=== PATIENT | male | born 1970 | race Caucasian/White ===

== ENCOUNTER → 2018-03-14 16:51 | Outpatient (CLI) | payer OTHER, SELFPAY ==
[2018-03-14 17:17] LABS: Basophils # 0.1 K/mm3 (0-0.2); Basophils % 0.8 % (0.1-2.0); Eosinophils # 0.2 K/mm3 (0.0-0.4); Eosinophils % 2.2 % (0.1-12.0); Hematocrit 41.3 % (42.0-52.0); Hemoglobin 13.8 g/dL (14.1-18.0); Lymphocytes % 25.9 K/mm3 (10-50); Mean Corpuscular HGB Conc 33.5 g/dL (31.8-35.4); Mean Corpuscular Hemoglobin 31.8 pg (27.0-31.2); Mean Corpuscular Volume 94.9 fl (80-94); Mean Platelet Volume 8.2 fl (7.4-10.4); Monocytes # 0.6 K/mm3 (0.1-1.0); Neutrophils % 63.2 % (37.0-80.0); Platelet Count 271 K/mm3 (142-424); Red Blood Count 4.35 M/mm3 (4.60-6.20); Red Cell Distribution Width 13.2 % (11.5-17.5); White Blood Count 7.9 K/mm3 (4.8-10.8)
[2018-03-14 19:02] LABS: Erythrocyte Sedimentation Rate 20 mm/hr (0-15)
[2018-03-14 19:42] LABS: Alanine Aminotransferase 41 U/L (12-78); Albumin/Globulin Ratio 1.3 (1.1-1.8); Alkaline Phosphatase 91 U/L (46-116); Anion Gap 13.7 mEq/L (5-15); Aspartate Amino Transferase 20 U/L (15-37); Bilirubin,Total 0.3 mg/dL (0.2-1.0); Blood Urea Nitrogen 24 mg/dL (7-18); Carbon Dioxide 29 mmol/L (21.0-32.0); Chloride 103 mmol/L (98-107); Chol/HDL Ratio 7.7 (1-3.5); Cholesterol 223 mg/dL (140-200); Creatinine,Serum 1.34 mg/dL (0.70-1.30); Estimated Glomerular Filt Rate 57 ml/min (>60); GFR (African American) 69 ML/MIN (>60); Globulin 3.1 gm/dl (1.3-3.2); Glucose 139 mg/dL (74-106); HDL Cholesterol 29 mg/dL (27-67); LDL Cholesterol 130 mg/dL (0-130); Potassium 3.7 mmoL/L (3.5-5.1); Sodium 142 mmol/L (136-145); Total Protein,Serum 7.1 gm/dL (6.4-8.2); Triglycerides 318 mg/dL (30-200); Uric Acid 7.3 mg/dL (2.6-7.2); VLDL Cholesterol 64 mg/dL (0-40)
== END ==
PROVIDERS: PCP Internal Medicine Adolescent Medicine; Visit Provider Internal Medicine Adolescent Medicine
DX: M10.9 Gout, unspecified (principal); I10 Essential (primary) hypertension
CPT/HCPCS: 36415; 80053; 80061; 84550; 85025; 85651

== ENCOUNTER → 2019-09-15 11:28 | Outpatient (CLI) | payer BC, SELFPAY ==
[2019-09-15 11:49] LABS: Basophils # 0.1 K/mm3 (0-0.2); Basophils % 0.8 % (0.1-2.0); Eosinophils # 0.2 K/mm3 (0.0-0.4); Eosinophils % 2.4 % (0.1-12.0); Hematocrit 42.1 % (42.0-52.0); Hemoglobin 14.6 g/dL (14.1-18.0); Lymphocytes # 1.3 K/mm3 (0.7-4.5); Lymphocytes % 19.6 % (10-50); Mean Corpuscular HGB Conc 34.7 g/dL (31.8-35.4); Mean Corpuscular Hemoglobin 32.4 pg (27.0-31.2); Mean Corpuscular Volume 93.2 fl (80-94); Mean Platelet Volume 9.7 fl (7.4-10.4); Monocytes # 0.4 K/mm3 (0.1-1.0); Monocytes % 6.4 % (1.7-9.3); Neutrophils # 4.8 K/mm3 (1.8-7.8); Neutrophils % 70.7 % (37.0-80.0); Platelet Count 251 K/mm3 (142-424); Red Blood Count 4.52 M/mm3 (4.60-6.20); Red Cell Distribution Width 13.6 % (11.5-17.5); White Blood Count 6.7 K/mm3 (4.8-10.8)
[2019-09-15 12:32] LABS: Chloride 110 mmol/L (98-107); Sodium 142 mmol/L (136-145)
[2019-09-15 12:35] LABS: Alanine Aminotransferase 28 U/L (12-78); Alkaline Phosphatase 95 U/L (38-126); Aspartate Amino Transferase 30 U/L (17-59); Bilirubin,Total 0.4 mg/dl (0.2-1.3); Blood Urea Nitrogen 29 mg/dl (9-20); Carbon Dioxide 20 mmol/L (22.0-30.0); Estimated Glomerular Filt Rate 64 ml/min (>60); GFR (African American) 78 ML/MIN (>60); Uric Acid 8.2 mg/dl (3.5-8.5)
[2019-09-15 12:36] LABS: Albumin Level 4.4 g/dl (3.5-5.0); Albumin/Globulin Ratio 1.7 (1.1-1.8); Calcium 10.1 mg/dl (8.4-10.2); Chol/HDL Ratio 6.1 (1-3.5); Cholesterol 243 mg/dl (140-200); Globulin 2.6 g/dL (1.3-3.2); Glucose 136 mg/dl (74-100); HDL Cholesterol 40 mg/dl (40-60); Triglycerides 306 mg/dl (30-150); VLDL Cholesterol 61 mg/dL (0-40)
[2019-09-15 12:47] LABS: Direct LDL Cholesterol 167.79 mg/dL (100-129)
[2019-09-15 12:54] LABS: Erythrocyte Sedimentation Rate 19 mm/hr (0-15)
== END ==
PROVIDERS: Visit Provider Internal Medicine Adolescent Medicine
DX: M10.9 Gout, unspecified (principal); E78.5 Hyperlipidemia, unspecified
CPT/HCPCS: 36415; 80053; 80061; 84550; 85025; 85651

== ENCOUNTER → 2020-05-31 11:58 | Outpatient (CLI) | payer BC, SELFPAY ==
[2020-05-31 12:46] LABS: Basophils # 0.1 K/mm3 (0-0.2); Basophils % 0.9 % (0.1-2.0); Eosinophils # 0.2 K/mm3 (0.0-0.4); Eosinophils % 2.9 % (0.1-12.0); Hematocrit 40.5 % (42.0-52.0); Hemoglobin 13.6 g/dL (14.1-18.0); Lymphocytes # 1.9 K/mm3 (0.7-4.5); Lymphocytes % 27.4 % (10-50); Mean Corpuscular HGB Conc 33.6 g/dL (31.8-35.4); Mean Corpuscular Volume 95.5 fl (80-94); Mean Platelet Volume 8.5 fl (7.4-10.4); Monocytes # 0.5 K/mm3 (0.1-1.0); Monocytes % 7.6 % (1.7-9.3); Neutrophils # 4.2 K/mm3 (1.8-7.8); Neutrophils % 61.2 % (37.0-80.0); Platelet Count 249 K/mm3 (142-424); Red Blood Count 4.24 M/mm3 (4.60-6.20); Red Cell Distribution Width 14.2 % (11.5-17.5); White Blood Count 6.8 K/mm3 (4.8-10.8)
[2020-05-31 13:11] LABS: Alanine Aminotransferase 28 U/L (12-78); Albumin Level 4.4 g/dl (3.5-5.0); Albumin/Globulin Ratio 1.8 (1.1-1.8); Alkaline Phosphatase 110 U/L (38-126); Aspartate Amino Transferase 30 U/L (17-59); Bilirubin,Total 0.7 mg/dl (0.2-1.3); Blood Urea Nitrogen 24 mg/dl (9-20); Carbon Dioxide 25 mmol/L (22.0-30.0); Chloride 105 mmol/L (98-107); Chol/HDL Ratio 3.9 (1-3.5); Cholesterol 141 mg/dl (140-200); Estimated Glomerular Filt Rate 79 ml/min (>60); GFR (African American) 96 ML/MIN (>60); Globulin 2.5 g/dL (1.3-3.2); Glucose 107 mg/dl (74-100); HDL Cholesterol 36 mg/dl (40-60); Sodium 140 mmol/L (136-145); Total Protein,Serum 6.9 g/dl (6.3-8.2); Triglycerides 174 mg/dl (30-150); Uric Acid 6.2 mg/dl (3.5-8.5); VLDL Cholesterol 35 mg/dL (0-40)
[2020-05-31 13:22] LABS: Direct LDL Cholesterol 68.18 mg/dL (100-129)
== END ==
PROVIDERS: Visit Provider Internal Medicine Adolescent Medicine
DX: M10.9 Gout, unspecified (principal); E78.5 Hyperlipidemia, unspecified
CPT/HCPCS: 36415; 80053; 80061; 84550; 85025

== ENCOUNTER → 2020-11-29 11:09 | Outpatient (CLI) | payer BC, SELFPAY ==
--- NOTE | 2020-11-29 11:14 | XR_ITS ---
PROCEDURE: XR KNEE LT 3V CLINICAL INDICATION: LT MEDIAL KNEE PAIN COMPARISON: CR [id number] KNEE-LIMITED 2 VIEWS-LT from 08/12/2015 CR [id number] KNEE-LIMITED 2 VIEWS-RT from 08/12/2015 FINDINGS: No fracture or dislocation. No lytic or blastic change. There is normal mineralization. There are mild to moderate osteoarthritic changes of the medial compartment and patellofemoral joint. There is decrease in the joint space with osteosclerosis and osteophyte formation at the medial compartment. These findings have developed since 08/12/2015. Other findings:None. IMPRESSION: Osteoarthritic changes as described Dictated by: Kam Doherty MD 11/29/2020 11:23 Kam Doherty MD in [place] 11/29/2020 11:23
== END ==
PROVIDERS: PCP Internal Medicine Adolescent Medicine; Visit Provider Internal Medicine Adolescent Medicine
DX: M25.562 Pain in left knee (principal)
CPT/HCPCS: 73562

== ENCOUNTER → 2021-06-06 10:38 | Outpatient (CLI) | payer BC, SELFPAY ==
[2021-06-06 13:08] LABS: Chloride 101 mmol/L (98-107); Sodium 140 mmol/L (136-145)
[2021-06-06 13:11] LABS: Alanine Aminotransferase 33 U/L (12-78); Albumin Level 4.3 g/dl (3.5-5.0); Albumin/Globulin Ratio 1.8 (1.1-1.8); Alkaline Phosphatase 102 U/L (38-126); Aspartate Amino Transferase 33 U/L (17-59); Bilirubin,Total 0.5 mg/dl (0.2-1.3); Blood Urea Nitrogen 24 mg/dl (9-20); Calcium 9.5 mg/dl (8.4-10.2); Carbon Dioxide 27 mmol/L (22.0-30.0); Cholesterol 124 mg/dl (140-200); Estimated Glomerular Filt Rate 71 ml/min (>60); GFR (African American) 85 ML/MIN (>60); Globulin 2.4 g/dL (1.3-3.2); Glucose 262 mg/dl (74-100); Total Protein,Serum 6.7 g/dl (6.3-8.2); Triglycerides 270 mg/dl (30-150); VLDL Cholesterol 54 mg/dL (0-40)
[2021-06-06 13:12] LABS: Chol/HDL Ratio 3.8 (1-3.5); HDL Cholesterol 33 mg/dl (40-60)
[2021-06-06 13:22] LABS: Direct LDL Cholesterol 65.45 mg/dL (100-129)
[2021-06-06 13:31] LABS: Uric Acid 7.2 mg/dl (3.5-8.5)
== END ==
PROVIDERS: PCP Internal Medicine Adolescent Medicine; Visit Provider Internal Medicine Adolescent Medicine
DX: I10 Essential (primary) hypertension (principal); E78.5 Hyperlipidemia, unspecified; M10.9 Gout, unspecified
CPT/HCPCS: 36415; 80053; 80061; 84550

== ENCOUNTER → 2023-02-15 13:29 | Outpatient (CLI) | payer OTHER, SELFPAY ==
--- NOTE | 2023-02-15 13:33 | US_ITS ---
FINAL REPORT CLINICAL HISTORY: ABN KIDNEY FUNCTION,TYPE II DIABETES,HTN,GOUTY ARTHRITIS FINDINGS: RENAL ULTRASOUND Ultrasound images of the kidneys were obtained. The right kidney measures 10.8 cm in length. It is normal echogenicity. There is no hydronephrosis. The left kidney measures 10.2 cm in length. It is normal echogenicity. There is no hydronephrosis. IMPRESSION: Normal renal ultrasound. Reviewed, Interpreted and Dictated by Cooper Vallecillo III, MD Transcribed by Nova Frazier Authenticated and [facility]
== END ==
LOC: RAD 13:29
PROVIDERS: PCP Internal Medicine Adolescent Medicine; Visit Provider Internal Medicine Adolescent Medicine
DX: N28.9 Disorder of kidney and ureter, unspecified (principal); E11.9 Type 2 diabetes mellitus without complications; I10 Essential (primary) hypertension; M10.9 Gout, unspecified; E78.5 Hyperlipidemia, unspecified
CPT/HCPCS: 76770

== ENCOUNTER → 2023-02-19 07:53 | Outpatient (CLI) | payer OTHER, SELFPAY ==
--- NOTE | 2023-02-19 | CA_ITS ---
FINAL REPORT TECHNIQUE: Grayscale, color Doppler and duplex Doppler ultrasound of the kidneys, aorta and renal arteries was performed. Multiple velocities were measured. CLINICAL HISTORY: HTN,ABN KIDNEY FUNCTION COMPARISON: None FINDINGS: Aorta velocity: 86.6 cm/sec Right kidney: 11.7 cm. No evidence of hydronephrosis or mass. Right intrarenal RI: 0.6 Right renal artery velocity: 123.5 cm/sec. Right RAR (Renal artery-Aortic Ratio): 1.43 Left Kidney: 12.4 cm. No evidence of hydronephrosis or mass. Left intrarenal RI: 0.7 Left renal artery velocity: 160.4 cm/sec. Left RAR (Renal Artery-Aortic Ratio): 1.85 IMPRESSION: No evidence of significant renal artery stenosis. CT angiogram or postcontrast MR angiogram would be more sensitive for evaluation of possible renal artery stenosis. Reviewed, Interpreted and Dictated by Cooper Vallecillo III, MD Transcribed by Nisreen Grider Authenticated and [facility]
== END ==
LOC: RT 07:54
PROVIDERS: PCP Internal Medicine Adolescent Medicine; Visit Provider Internal Medicine Adolescent Medicine
DX: N28.9 Disorder of kidney and ureter, unspecified (principal); E11.9 Type 2 diabetes mellitus without complications; I10 Essential (primary) hypertension; M10.9 Gout, unspecified; E78.5 Hyperlipidemia, unspecified
CPT/HCPCS: 93976

== ENCOUNTER 2024-02-24 09:16 | Outpatient (CLI) | payer OTHER, BC, SELFPAY ==
--- NOTE | 2024-02-24 09:24 | XR_ITS ---
FINAL REPORT CLINICAL HISTORY: right knee pain COMPARISON: None FINDINGS: RIGHT KNEE: Three views of the right knee were obtained. There is no acute fracture or dislocation. There are moderate to severe degenerative changes, greatest in the medial compartment. There is a small joint effusion. Soft tissues are unremarkable. IMPRESSION: Small joint effusion Degenerative changes without acute bony abnormality. Reviewed, Interpreted and Dictated by Cooper Vallecillo III, MD Transcribed by Amina Gan Authenticated and [facility]
--- NOTE | 2024-02-24 09:24 | XR_ITS ---
FINAL REPORT CLINICAL HISTORY: Left knee pain COMPARISON: 11/29/2020 FINDINGS: LEFT KNEE: Three views of the left knee were obtained. There is no acute fracture or dislocation. There are moderate degenerative changes with moderate metacarpal narrowing, which is worse from the prior x-rays. There is a small joint effusion. Soft tissues are unremarkable. IMPRESSION: Small joint effusion. Worsening degenerative changes with metacarpal narrowing. Reviewed, Interpreted and Dictated by Cooper Vallecillo III, MD Transcribed by Amina Gan Authenticated and [facility]
== END 2024-02-24 23:59 | disposition home or self-care (01) ==
LOC: RAD 09:22
PROVIDERS: PCP Internal Medicine Adolescent Medicine; Visit Provider Orthopaedic Surgery
DX: M25.561 Pain in right knee (principal); M25.562 Pain in left knee
CPT/HCPCS: 73562